=== PATIENT | female | born 1985 | race Caucasian/White ===

== ENCOUNTER 2016-12-22 02:20 | Emergency (ER) | payer OTHER ==
[2016-12-22 04:45] VITALS: BP 113/81
== END 2016-12-22 04:45 | disposition home or self-care (01) ==
LOC: ED 02:20
DX: G43.909 Migraine, unspecified, not intractable, without status migrainosus (principal); Z88.1 Allergy status to other antibiotic agents
CPT/HCPCS: J1170; J1885; Q0162

== ENCOUNTER 2017-08-19 16:24 | Emergency (ER) | payer OTHER ==
[~2017-08-19] VITALS: Ht 160 cm; Wt 51.2 kg
[2017-08-19 16:29] VITALS: Ht 160 cm; Wt 51.2 kg
[2017-08-19 17:40] VITALS: BP 122/76
== END 2017-08-19 18:35 | disposition left against medical advice (07) ==
LOC: ED 16:24
DX: R51 Headache (principal)
CPT/HCPCS: J0780; J1100; J2270; J7030